=== PATIENT | female | born 1950 | race Caucasian/White ===

== ENCOUNTER 2017-08-15 09:10 | Outpatient (CLI) | payer MEDICARE, OTHER ==
--- NOTE | 2017-08-16 15:48 | DEXA Report ---
DEXA SCAN: 08/15/2017 HISTORY: Postmenopausal. Mother with osteoporosis. TECHNIQUE: Dual energy x-ray absorptiometry (DXA) was performed on a [employer] system. Regions measured are the AP spine, femoral neck, and, if needed, forearm. COMPARISON: None. In accordance with the International Society for Clinical Densitometry (ISCD) guidelines, data from previous exams may be reanalyzed using current recommendations and techniques. This is done to allow a more accurate basis for comparison with the current study. FINDINGS LUMBAR SPINE DATA: REGION BMD (g/cm/cm) T-SCORE Z-SCORE L1 0.902 -1.9 -0.3 L2 0.946 -2.1 -0.5 L3 0.951 -2.1 -0.4 L4 1.011 -1.6 0.1 TOTAL 0.957 -1.9 -0.2 NOTE: All evaluable vertebrae are used for classification. HIP DATA: REGION BMD (g/cm/cm) T-SCORE Z-SCORE Neck 0.769 -1.9 -0.3 TOTAL 0.731 -2.2 -0.8 NOTE: The femoral neck or total proximal femur, whichever is lowest, is used for classification. IMPRESSION THE WHO CLASSIFICATION BASED ON THE INTERNATIONAL REFERENCE STANDARD: OSTEOPENIA. FRACTURE RISK: INCREASED. RECOMMENDATION: Patients with diagnosis of osteoporosis or osteopenia should have regular bone mineral density assessment. For those eligible for Medicare, routine testing is allowed once every 2 years. Testing frequency can be increased for patients who have rapidly progressing disease or for those who are receiving medical therapy to restore bone mass. COMMENT: World Health Organization (WHO) definitions for osteoporosis and osteopenia: NORMAL BMD: T-score at -1.0 or higher, fracture risk is low. OSTEOPENIA BMD: T-score between -1.0 and -2.5, fracture risk is increased. OSTEOPOROSIS BMD: T-score at -2.5 or lower, fracture risk high. National Osteoporosis Foundation recommends: 1. Obtain adequate dietary calcium (at least 1200 mg per day) and vitamin D (400 -800 international units per day). 2. Participate, as appropriate, in regular weightbearing and muscle- strengthening exercise. 3. Avoid tobacco use and reduce alcohol and caffeine intake. 4. For more detailed information see the website at www.NOF.org. MTDD
== END 2017-08-15 09:11 | disposition home or self-care (01) ==
LOC: DI 09:10
PROVIDERS: ATTEND Physician Assistant
DX: M85.89 Other specified disorders of bone density and structure, multiple sites (principal)
CPT/HCPCS: 77080

== ENCOUNTER 2017-08-15 09:14 | Outpatient (CLI) | payer MEDICARE, OTHER ==
--- NOTE | 2017-08-16 11:34 | Mammography Report ---
DIGITAL BILATERAL SCREENING MAMMOGRAM: 08/15/2017 COMPARISON: Mammogram 08/09/2016. INDICATION: Bilateral screening mammogram. TECHNIQUE: Bilateral MLO and CC breast views. FINDINGS: The breast parenchyma is extremely dense which may limit the sensitivity of mammography. No mass, architectural distortion, or concerning cluster of microcalcifications are seen. IMPRESSION: 1. BIRADS CATEGORY 1. NEGATIVE. 2. RECOMMEND ANNUAL SCREENING MAMMOGRAM. STANDARD QUALIFYING STATEMENTS 1. This examination was reviewed with the aid of Computer-Aided Detection (CAD). 2. A negative or benign imaging report should not delay biopsy if clinically suspicious findings are present. Consider surgical consultation if warranted. More than 5% of cancers are not identified by imaging. 3. Dense breasts may obscure an underlying neoplasm. JOB #: [id number] EXT JOB #: [id number] AGUEDA
== END 2017-08-15 09:15 | disposition home or self-care (01) ==
LOC: DI 09:14
PROVIDERS: ATTEND Physician Assistant
DX: Z12.31 Encounter for screening mammogram for malignant neoplasm of breast (principal)
CPT/HCPCS: 77067

== ENCOUNTER 2018-10-17 15:19 | Outpatient (CLI) | payer MEDICARE, OTHER ==
--- NOTE | 2018-10-18 09:46 | Mammography Report ---
Reason: SCREENING MAMMO Procedure Date: 10/17/2018 Accession Number: [id number] / [id number] Procedure: [facility] - Screening Mammo w/Tc CPT Code: FULL RESULT: EXAM: Screening Mammo w/Tc DATE: 10/17/2018 4:01 PM CLINICAL HISTORY: Routine screening. No reported personal or family history of breast cancer. TECHNIQUE: Bilateral CC and MLO views were obtained. COMPARISON: 08/15/2017 through 05/25/2015 FINDINGS: The breasts demonstrate heterogeneously dense fibroglandular parenchyma bilaterally. Bilateral breasts: There are no suspicious masses, calcifications or areas of distortion. IMPRESSION: Negative examination RECOMMENDATION: Routine annual screening unless otherwise clinically indicated. BI-RADS CATEGORY 1: Negative STANDARD QUALIFYING STATEMENTS: 1. This examination was not reviewed with the aid of Computer-Aided Detection (CAD). 2. A negative or benign imaging report should not preclude biopsy if clinically suspicious findings are present. 3. Dense breasts may obscure an underlying neoplasm. 4. This examination was reviewed with the aid of 3D breast imaging (tomosynthesis).
== END 2018-10-17 15:20 | disposition home or self-care (01) ==
LOC: DI 15:19
DX: Z12.31 Encounter for screening mammogram for malignant neoplasm of breast (principal)
CPT/HCPCS: 77063; 77067

== ENCOUNTER 2019-07-24 15:13 | Outpatient (CLI) | payer MEDICARE, OTHER | END 2019-07-24 15:14 | disposition home or self-care (01) | LOC: LAB 15:13 | PROVIDERS: ATTEND Internal Medicine Cardiovascular Disease | DX: Z82.49 Family history of ischemic heart disease and other diseases of the circulatory system (principal) | CPT/HCPCS: 36415; 86141 ==

== ENCOUNTER 2020-12-23 15:42 | Outpatient (CLI) | payer MEDICARE ==
--- NOTE | 2020-12-23 18:37 | Ultrasound Report ---
PROCEDURE: Pelvic w/Transvaginal INDICATIONS: BROWN VAG DISCHARGE TECHNIQUE: Real-time scanning was performed of the pelvic organs, with image documentation. Additional endovagi nal scanning was necessary due to incomplete visualization of the adnexal and endometrial structures by transabdominal scanning. COMPARISON: CT of abdomen and pelvis dated 04/23/2015. FINDINGS: Study is markedly limited. Large thick walled cystic structure is noted in the region of the cervix a nd measures 7.3 x 6.8 x 8.9 cm in size with internal low-level echo which prevents the insertion of t ransvaginal probe. Uterus is not well seen on this study. Right ovary measures 5.1 x 5.8 x 6.2 cm in size with a volume of 96.1 cc. Left ovary measures 4.4 x 3 x 3.9 cm in size with a volume of 26.9 cc. Lobulated cystic structure in right ovary measures 3.7 x 3.6 x 3.0 cm in size is seen. There is a 8.1 x 5.3 x 7.1 cm complex appearing cystic structure is see n in the region of left ovary without definite internal vascularity. Additional complex cystic struct ure is also seen within the pelvis. No definite internal vascularity is seen. IMPRESSION: 1. Markedly limited study. Unable to perform transvaginal exam of the pelvis as above. 2. Multiple thick walled complex cystic structure is seen in the pelvis some are in close proximity t o the bilateral ovaries and in the region of cervix as described above. These may represent large ova juvencio cyst versus paraovarian complex cysts such as endometrioma. Other cystic neoplasm cannot be excl uded. LOG SORTER correlation is recommended. CT of abdomen and pelvis can also be done for further evaluatio n of these areas. Reviewed by: José Del Rio MD on 12/23/2020 5:36 PM AKAMIRAH Approved by: José Del Rio MD on 12/23/2020 5:36 PM AKDT Station ID: [id number]
== END 2020-12-23 15:43 | disposition home or self-care (01) ==
LOC: DI 15:42
PROVIDERS: ATTEND Nurse Practitioner Family
DX: N89.8 Other specified noninflammatory disorders of vagina (principal); R93.89 Abnormal findings on diagnostic imaging of other specified body structures

== ENCOUNTER 2020-12-25 09:37 | Outpatient (CLI) | payer MEDICARE ==
[2020-12-25 10:09] LABS: CREATININE 0.7 mg/dL (0.4-1.0)
[2020-12-25] MEDS ORDERED: IOPAMIDOL-300 100 ML VIAL IVP ONE (17:21)
[2020-12-25] MEDS ORDERED: IOPAMIDOL-300 50 ML VIAL PO ONE (17:22)
== END 2020-12-25 09:38 | disposition home or self-care (01) ==
LOC: LAB 09:37
PROVIDERS: ATTEND Nurse Practitioner Family
DX: R19.00 Intra-abdominal and pelvic swelling, mass and lump, unspecified site (principal)
CPT/HCPCS: 36415; 82565

== ENCOUNTER 2020-12-25 09:43 | Outpatient (CLI) | payer MEDICARE ==
[2020-12-25] MEDS ORDERED: IOPAMIDOL-300 100 ML VIAL ONE (09:44)
[2020-12-25] MEDS ORDERED: IOPAMIDOL-300 50 ML VIAL ONE (09:45)
--- NOTE | 2020-12-25 12:16 | CT Report ---
PROCEDURE: Abdomen/Pelvis W INDICATIONS: INTRA-ABD AND PELVIC SWELLING, MASS, LUMP CONTRAST: IV CONTRAST: Isovue 300 ml: 100 PO CONTRAST: Isovue 300 ml50 TECHNIQUE: After the administration of nonionic contrast, 5 mm thick sections acquired from the diaphragms to th e symphysis. 5 mm thick coronal and sagittal reformats were acquired. For radiation dose reduction, the following was used: automated exposure control, adjustment of mA and/or kV according to patient size. COMPARISON: None. FINDINGS: Image quality: Excellent. ABDOMEN: Lung bases: Lung bases are clear. Heart size is normal. Solid organs: Liver and spleen are normal in size and enhancement. Gallbladder is unremarkable Jose David iary system is non dilated. Pancreas enhances normally. No adrenal nodules. Kidneys demonstrate no rmal size and enhancement, without hydronephrosis. Simple appearing right superior pole cystic lesio n decreased in size from comparison exam. Nonobstructing nephrolith within the inferior pole of the l eft kidney. Peritoneum and bowel: Bowel loops demonstrate normal wall thickness and caliber. Within the left matt e of the abdomen extending adjacent to the descending and sigmoid colon is a heterogeneous enhancing mesenteric mass measuring 8.0 x 4.8 x 9.3 cm in greatest dimensions. Nodes and vessels: There is retroperitoneal adenopathy with conglomeration of periaortic lymph nodes noted just distal to the left renal vein measuring 3.1 x 2.6 x 5.0 cm. Aorta and inferior vena cava a re normal in size. Miscellaneous: No ventral hernias. PELVIS: Genitourinary: There is dilation of the endocervical canal measuring 6.7 x 8.4 cm on axial imaging. T here are adjacent thick-walled peripherally enhancing hypodense centered lesion along the posterior a spect of the cervix measuring 2.9 x 1.9 cm on axial imaging in addition there is focal enhancement al ace the left side of the posterior cervix measuring 4.0 x 2.4 cm on axial imaging. There is fluid-arnold led dilated uterus with a soft tissue mass along the right superior aspect measuring 2.7 x 1.9 cm on axial imaging. Along the right adnexa is a multilobulated peripherally enhancing cystic appearing mas s measuring 8.1 x 5.7 x 5.2 cm. Additional heterogeneous multilobulated cystic mass is noted within t he posterior aspect of the pelvis measuring 8.3 x 5.4 x 8.9 cm. Miscellaneous: No inguinal hernias or adenopathy. Bones: No suspicious bony lesions. No vertebral body compression fractures. IMPRESSION: Findings most consistent with metastatic malignancy throughout the pelvis and abdomen. This includes multiple thick-walled enhancing cystic lesions throughout the pelvis and within the mesentery along w ith periaortic adenopathy. Given dilation of the cervix and endometrial canal along with endometrial mass, this is favored to represent metastatic endometrial versus cervical carcinoma. Recommend gyneco logical surgery and oncologic evaluation with tissue sampling. Nonobstructing left-sided nephrolith. Reviewed by: Tai Zuñiga DO on 12/25/2020 11:15 AM ALVIN Approved by: Tai Zuñiga DO on 12/25/2020 11:15 AM ALVIN Station ID: [id number]
== END 2020-12-25 09:44 | disposition home or self-care (01) ==
LOC: DI 09:43
PROVIDERS: ATTEND Nurse Practitioner Family
DX: R93.5 Abnormal findings on diagnostic imaging of other abdominal regions, including retroperitoneum (principal); N20.0 Calculus of kidney; R19.00 Intra-abdominal and pelvic swelling, mass and lump, unspecified site
CPT/HCPCS: 36415; 74177; 82565; Q9967

== ENCOUNTER 2021-01-18 08:17 | Outpatient (CLI) | payer MEDICARE ==
[2021-01-18] MEDS ORDERED: IOPAMIDOL-300 100 ML VIAL ONE (08:23)
[2021-01-18] MEDS ORDERED: IOPAMIDOL-300 100 ML VIAL IVP ONE (08:49)
--- NOTE | 2021-01-18 11:51 | CT Report ---
PROCEDURE: CHEST W INDICATIONS: MALIGNANT NEOPLASM OF OVARY CONTRAST: IV CONTRAST: Isovue 300 ml: 100 PO CONTRAST: *NO PO CONTRAST TECHNIQUE: After the administration of intravenous contrast, 5 mm thick sections acquired from the pulmonary api jojo to the posterior costophrenic angles. 7 mm thick coronal MIP reformats were acquired. For radia tion dose reduction, the following was used: automated exposure control, adjustment of mA and/or kV according to patient size. COMPARISON: Prior abdomen/pelvis CT 12/25/2020 reviewed.. FINDINGS: Image quality: Excellent. Lungs and pleura: No acute air space opacities. No pleural effusions or pneumothorax. Central and peripheral airways are patent and normal in caliber. Mediastinum: Heart size is normal. No pericardial effusion. No mediastinal or hilar adenopathy by size criteria. Thoracic aorta and central pulmonary arteries are normal in size. Esophagus is francisco l in caliber. No hiatal hernia. Bones and chest wall: No suspicious bony lesions. No vertebral body compression fractures. No axil michaelle or supraclavicular adenopathy by size criteria. Thyroid gland appears normal where well seen.. Abdomen: Visualized upper abdominal solid organs appear normal. Upper abdominal bowel loops are nor mal in caliber. Note is made, however, of left para-aortic and to a mild degree aortocaval adenopath y, as was seen during CT scanning of the abdomen/pelvis 12/25/20. Only a small portion of the abdomen is included on this study. IMPRESSION: Within the lung parenchyma no metastatic disease is found. Within the abdomen there is left periaorti c and to a mild degree aortocaval enlarged lymph nodes, previously present on dedicated abdomen/pelvi s CT scanning from 12/25/2020. Reviewed by: Jamil Tony MD on 01/18/2021 11:49 AM PDT Approved by: Jamil Tony MD on 01/18/2021 11:49 AM PDT Station ID: [id number]
== END 2021-01-18 08:18 | disposition home or self-care (01) ==
LOC: DI 08:17
PROVIDERS: ATTEND Obstetrics & Gynecology
DX: R59.0 Localized enlarged lymph nodes (principal)
CPT/HCPCS: 71260; Q9967

== ENCOUNTER 2021-03-21 07:52 | Outpatient (CLI) | payer MEDICARE ==
[2021-03-21] MEDS ORDERED: IOVERSOL 320 100 ML VIAL IVP ONE ×2 (07:58→10:24)
[2021-03-21] MEDS ORDERED: IOVERSOL 320 50 ML VIAL ONE (07:58)
[2021-03-21] MEDS ORDERED: IOPAMIDOL-300 50 ML VIAL PO ONE (10:25)
--- NOTE | 2021-03-21 17:06 | CT Report ---
PROCEDURE: CHEST W INDICATIONS: METASTATIC UTERINE CA CONTRAST: IV CONTRAST: Optiray 320 ml: 100 PO CONTRAST: Isovue 300 ml50 TECHNIQUE: After the administration of intravenous contrast, 5 mm thick sections acquired from the pulmonary api jojo to the posterior costophrenic angles. 7 mm thick coronal MIP reformats were acquired. For radia tion dose reduction, the following was used: automated exposure control, adjustment of mA and/or kV according to patient size. COMPARISON: 01/18/2021. FINDINGS: Image quality: Excellent. Lungs and pleura: No acute air space opacities. No pleural effusions or pneumothorax. Central and peripheral airways are patent and normal in caliber. Mediastinum: Heart size is mildly enlarged. No pericardial effusion. No mediastinal or hilar adeno kenny by size criteria. Thoracic aorta and central pulmonary arteries are normal in size. Mild to mo derate atherosclerotic calcifications are noted in coronary vessels and thoracic aorta. Esophagus is normal in caliber. No hiatal hernia. Bones and chest wall: No suspicious bony lesions. No vertebral body compression fractures. No axil michaelle or supraclavicular adenopathy by size criteria. The thyroid is normal in size. Hypodense area i nvolving lower pole of left thyroid lobe is seen which may represent tiny thyroid nodule. Right chest wall Port-A-Cath tip is in SVC. Abdomen: Please refer to CT of the abdomen and pelvis study from the same day. IMPRESSION: 1. No evidence of metastatic disease is seen in the chest. No significant changes from 01/18/2021 stud y. 2. Incidentally noted of possible tiny nodule involving lower pole of left thyroid lobe. 3. Mild cardiomegaly and mild to moderate atherosclerotic disease. Reviewed by: José Del Rio MD on 03/21/2021 5:05 PM PDT Approved by: José Del Rio MD on 03/21/2021 5:05 PM PDT Station ID: [id number]
--- NOTE | 2021-03-21 18:27 | CT Report ---
PROCEDURE: Abdomen/Pelvis W INDICATIONS: METASTATIC UTERINE CA CONTRAST: IV CONTRAST: Optiray 320 ml: 100 PO CONTRAST: Isovue 300 ml50 TECHNIQUE: After the administration of 100 mL contrast, 5 mm thick sections acquired from the diaphragms to the symphysis. 5 mm thick coronal and sagittal reformats were acquired. For radiation dose reduction, t billy following was used: automated exposure control, adjustment of mA and/or kV according to patient s ize. COMPARISON: 12/25/2020. FINDINGS: Image quality: Excellent. ABDOMEN: Lung bases: See separately dictated CT of the chest. Solid organs: Liver and spleen are normal in si ze and enhancement. Gallbladder is normal. Biliary system is non dilated. Pancreas enhances normal ly. No adrenal nodules. Kidneys demonstrate normal size and enhancement, without hydronephrosis. Th ere are is a 2 cm cyst of the right kidney. A nonobstructing left kidney nephrolith in the midpole is unchanged. Peritoneum and bowel: Bowel loops demonstrate normal wall thickness and caliber. There is increased stool in the colon consistent with constipation. No free fluid or air. Nodes and vessels: No retroperitoneal or mesenteric adenopathy by size criteria. Aorta and inferior vena cava are normal in size. Miscellaneous: No ventral hernias. PELVIS: Genitourinary: Status post hysterectomy since the prior CT. Lobulated masses in the right adnexa, lef t pelvis, and left lower quadrant seen on the prior CT are no longer seen likely also resected. No re sidual pelvic or mesenteric masses are identified. Retroperitoneal lymph nodes present on the prior C T have resolved and are within normal limits within size criteria. Miscellaneous: No inguinal hernias or adenopathy. Bones: No suspicious bony lesions. No vertebral body compression fractures. There is degenerative disc disease at L4-5. IMPRESSION: 1. Status post hysterectomy and resection of multiple mesenteric masses seen on the prior CT on 2020. No residual mesenteric or pelvic masses are identified. 2. Retroperitoneal para-aortic adenopathy seen on the prior CT have resolved. 3. No evidence of residual or recurrent metastasis or adenopathy. 4. Constipation. Reviewed by: Gulshan Miguel on 03/21/2021 6:25 PM PDT Approved by: Gulshan Miguel on 03/21/2021 6:25 PM PDT Station ID: [id number]
== END 2021-03-21 07:53 | disposition home or self-care (01) ==
LOC: DI 07:52
PROVIDERS: ATTEND Internal Medicine Hematology & Oncology
DX: C57.8 Malignant neoplasm of overlapping sites of female genital organs (principal); I51.7 Cardiomegaly; I25.10 Atherosclerotic heart disease of native coronary artery without angina pectoris; K59.00 Constipation, unspecified; Z90.710 Acquired absence of both cervix and uterus
CPT/HCPCS: 71260; 74177; Q9967

== ENCOUNTER 2021-07-08 07:39 | Outpatient (CLI) | payer MEDICARE ==
[2021-07-08] MEDS ORDERED: IOVERSOL 320 50 ML VIAL ONE (07:51)
[2021-07-08] MEDS ORDERED: IOVERSOL 320 100 ML VIAL IVP ONE (07:51)
--- NOTE | 2021-07-08 15:53 | CT Report ---
PROCEDURE: Abdomen/Pelvis W INDICATIONS: OVARIAN CANCER CONTRAST: IV CONTRAST: Optiray 320 ml: 100 PO CONTRAST: Optiray 320 ml50 TECHNIQUE: After the administration of contrast, 5 mm thick sections acquired from the diaphragms to the sym physis. 5 mm thick coronal and sagittal reformats were acquired. For radiation dose reduction, the following was used: automated exposure control, adjustment of mA and/or kV according to patient size . COMPARISON: None. FINDINGS: Image quality: Excellent. ABDOMEN: Lung bases: 5 mm nodule in the left lower lobe series 11 image 102. 3 mm nodule in the right middle lobe series 11 image 95. Lung bases are clear. Heart size is normal. Solid organs: Liver and spleen are normal in size and enhancement. Gallbladder is normal. Biliary system is non dilated. Pancreas enhances normally. No adrenal nodules. Kidneys demonstrate normal size and enhancement, without hydronephrosis. The right kidney has a 2 cm cyst, unchanged compared t o 03/21/2021. Peritoneum and bowel: There is increased stool throughout the large bowel consistent with constipati on. Bowel loops demonstrate normal wall thickness and caliber. No free fluid or air. Nodes and vessels: No retroperitoneal or mesenteric adenopathy by size criteria. Aorta and inferior vena cava are normal in size. The aorta is tortuous. Miscellaneous: No ventral hernias. PELVIS: Genitourinary: Bladder wall thickness is normal. Miscellaneous: No inguinal hernias or adenopathy. Bones: No suspicious bony lesions. No vertebral body compression fractures. IMPRESSION: 1. No acute abnormality of the abdomen or pelvis. 2. Status post hysterectomy and nephrectomy. No evidence of metastatic disease to the abdomen or pelv is. 3. Constipation. 4. No retroperitoneal or para-aortic adenopathy. Reviewed by: Gulshan Miguel on 07/08/2021 3:52 PM PDT Approved by: Gulshan Miguel on 07/08/2021 3:52 PM PDT Station ID: [id number]
[2021-07-08] MEDS: IOVERSOL 320 50 ML VIAL PO ONE (16:17)
[2021-07-08] MEDS: IOVERSOL 320 100 ML VIAL IVP ONE (16:17)
--- NOTE | 2021-07-08 18:02 | CT Report ---
PROCEDURE: CHEST W INDICATIONS: OVARIAN CANCER CONTRAST: IV CONTRAST: Optiray 320 ml: 100 PO CONTRAST: Optiray 320 ml50 TECHNIQUE: After the administration of intravenous contrast, 1 mm axial images were acquired from the pulmonary apices through the posterior costophrenic angles. Axial 5 mm soft tissue kernel reconstructions were performed as well as 8 mm axial MIP and coronal and sagittal 5 mm reformations. For radiation dose reduction, the following was used: automated exposure control, adjustment of mA and/or kV according to patient size. COMPARISON: Prior chest CT, 03/21/2021. Correlation is made with the accompanying abdomen and pelvis CT, 07/08/2021. FINDINGS: Image quality: Excellent. Lungs and pleura: A few pulmonary nodules can be seen: Right middle lobe laterally, series 4 image 190, 3 mm, stable Right lower lobe anteriorly, series 4 image 166, 2 mm, stable Left lower lobe laterally, subpleural, series 4 image 206, 4 to 5 mm, stable No acute air space opacities. No pleural effusions or pneumothorax. Central and peripheral airways are patent and normal in caliber. Mediastinum: Heart size is normal. No pericardial effusion. No mediastinal or hilar adenopathy by size criteria. Thoracic aorta and central pulmonary arteries are normal in size. Esophagus is francisco l in caliber. There is a small hiatal hernia. Bones and chest wall: No suspicious bony lesions. No vertebral body compression fractures. Age-appr opriate degenerative changes are seen. There is accentuated thoracic kyphosis. No axillary or ellis praclavicular adenopathy by size criteria. The thyroid is normal in size and there are no incidental findings. There is a stable right-sided chest port, with the tip seen within the inferior aspect of the superior vena cava. Abdomen: There is an apparent septated cyst seen along the lateral aspect of the right kidney, which is eccentric decreased in size compared to 2015. Bilateral mild hydronephrosis is seen. The visualize d portions of the upper abdominal structures are otherwise within normal limits. IMPRESSION: Stable moderate nodules are seen on both sides. Although there is relatively low suspicion for metast atic disease, attention should be paid to these nodules on a future follow-up studies. Incidental note is made of: Stable right-sided chest port Small hiatal hernia Reviewed by: Romaine Guadalupe MD on 07/08/2021 5:00 PM AKDT Approved by: Romaine Guadalupe MD on 07/08/2021 5:00 PM ALVIN Station ID: [id number]
== END 2021-07-08 07:40 | disposition home or self-care (01) ==
LOC: DI 07:39
PROVIDERS: ATTEND Internal Medicine Hematology & Oncology
DX: C56.9 Malignant neoplasm of unspecified ovary (principal); R91.8 Other nonspecific abnormal finding of lung field; K44.9 Diaphragmatic hernia without obstruction or gangrene; K59.00 Constipation, unspecified
CPT/HCPCS: 71260; 74177; Q9967

== ENCOUNTER 2021-09-20 09:35 | Outpatient (CLI) | payer MEDICARE ==
--- NOTE | 2021-09-21 16:07 | Mammography Report ---
BILATERAL DIGITAL SCREENING MAMMOGRAM 3D/2D WITH EXAGGERATED CC: 09/20/2021 CLINICAL: Routine screening. Routine screening. Comparison is made to exams dated: 10/17/2018 mammogram and 08/15/2017 mammogram - [facility]. The tissue of both breasts is heterogeneously dense. This may lower the sensitivity of brett mography. There are benign calcifications in the left breast. No significant masses, calcifications, or other findings are seen in either breast. There has been no significant interval change. IMPRESSION: BENIGN There is no mammographic evidence of malignancy. A 1 year screening mammogram is recommended. This exam was interpreted at Station ID: [id number]. NOTE: For mammograms, a report in lay terms will be sent to the patient. Approximately 15% of breast malignancies will not be visualized mammographically. In the management of a palpable breast mass, a negative mammogram must not discourage biopsy of a clinically suspicious lesion. Electronically Signed By: Odessa farah/peter:09/20/2021 15:40:17 ACR BI-RADS Category 2: Benign Finding(s) 3342F PARENCHYMAL PATTERN: (D) - The breast(s) demonstrate(s) heterogeneously dense fibroglandular parchantelly ma. BI-RADS CATEGORY: (2) - 2 RECOMMENDATION: (ANNUAL) - Recommend routine annual screening mammography. [id number] 1 year screening LATERALITY: (B)
== END 2021-09-20 09:36 | disposition home or self-care (01) ==
LOC: DI.S 09:35
PROVIDERS: ATTEND Nurse Practitioner Family
DX: Z12.31 Encounter for screening mammogram for malignant neoplasm of breast (principal)

== ENCOUNTER 2021-10-14 14:25 | Outpatient (CLI) | payer MEDICARE, OTHER ==
--- NOTE | 2021-10-14 16:41 | DEXA Report ---
PROCEDURE: Dexa Spine and/or Hip INDICATIONS: postmenopausal TECHNIQUE: Dual energy x-ray absorptiometry (DXA) was performed on a [employer] System. Regions measur ed are the AP Spine, femoral neck, and if needed forearm. COMPARISON: 08/15/2017 FINDINGS: Lumbar Spine: Bone Mineral Density 1.023 g/cm/cm,T score -1.3, osteopenia Left Hip: Bone Mineral Density 0.708 g/cm/cm,T score -2.4, osteopenia Left Femoral Neck: Bone Mineral Density 0.765 g/cm/cm, T score -2.0, osteopenia (T score greater or equal to -1.0: NORMAL) (T score from -1.1 to -2.4: OSTEOPENIA) (T score less than or equal to -2.5 to: OSTEOPOROSIS) Impression: OSTEOPENIA. Patient is at increased risk for fracture Patients with diagnosis of osteoporosis or osteopenia should have regular bone mineral density assess ment. For those eligible for Medicare, routine testing is allowed once every 2 years. Testing frequ ency can be increased for patients who have rapidly progressing disease or for those who are receivin g medical therapy to restore bone mass. Reviewed by: Todd Sun MD on 10/14/2021 4:39 PM PST Approved by: Todd Sun MD on 10/14/2021 4:39 PM PST Station ID: [id number]
== END 2021-10-14 14:26 | disposition home or self-care (01) ==
LOC: DI 14:25
PROVIDERS: ATTEND Physician Assistant
DX: Z78.0 Asymptomatic menopausal state (principal); M85.89 Other specified disorders of bone density and structure, multiple sites

== ENCOUNTER 2024-01-21 09:58 | Outpatient (CLI) | payer MEDICARE, OTHER ==
[2024-01-21 10:16] LABS: EOSINOPHILS # (AUTO) 0.1 10^3/uL (0.0-0.7); HCT - HEMATOCRIT 37.1 % (37.0-47.0); LYMPHOCYTES # (AUTO) 1.1 10^3/uL (1.5-3.5); LYMPHOCYTES % (AUTO) 26.6 %; MEAN CORPUSCULAR HEMOGLOBIN 29.9 pg (27.0-31.0); MEAN CORPUSCULAR HGB CONC 32.3 g/dL (32.0-36.0); MEAN CORPUSCULAR VOLUME 92.5 fL (81.0-99.0); MEAN PLATELET VOLUME 9.9 fL (7.9-10.8); MONOCYTES # (AUTO) 0.4 10^3/uL (0.0-1.0); MONOCYTES % (AUTO) 10.7 %; NEUTROPHILS # (AUTO) 2.4 10^3/uL (1.5-6.6); NEUTROPHILS % (AUTO) 58.5 %; PLT - PLATELET COUNT 290 10^3/uL (130-450); RED BLOOD COUNT 4.01 10^6/uL (4.20-5.40); RED CELL DISTRIBUTION WIDTH 12.9 % (12.0-15.0)
[2024-01-21 10:37] LABS: ALBUMIN 4.2 g/dL (3.2-5.5); ALBUMIN/GLOBULIN RATIO 1.9 (1.0-2.2); ALKALINE PHOSPHATASE 61 IU/L (42-121); ALT ALANINE AMINOTRANSFERASE 6 IU/L (10-60); AST ASPARTATE AMINOTRANSFERASE 13 IU/L (10-42); BILIRUBIN,TOTAL 0.6 mg/dL (0.2-1.0); BUN - BLOOD UREA NITROGEN 18 mg/dL (6-20); CALCIUM 9.4 mg/dL (8.5-10.3); CARBON DIOXIDE - CO2 29 mmol/L (21-32); CHLORIDE 104 mmol/L (101-111); CHOLESTEROL 201 mg/dL; CREATININE 0.7 mg/dL (0.6-1.3); GFR - MDRD 81 (>89); GLUCOSE 94 mg/dL (74-104); HDL CHOLESTEROL 67 mg/dL; LDL CHOLESTEROL,CALCULATED 105 mg/dL; LDL/HDL RATIO 1.6 (<4.4); POTASSIUM 4.2 mmol/L (3.5-4.5); SODIUM 137 mmol/L (135-145); TOTAL PROTEIN 6.4 g/dL (6.4-8.9); TRIGLYCERIDES 146 mg/dL (48-352); VLDL CHOLESTEROL 29 mg/dL
[2024-01-21 10:48] LABS: THYROID STIMULATING HORMONE 1.97 uIU/mL (0.34-5.60)
== END 2024-01-21 09:59 | disposition home or self-care (01) ==
LOC: LAB 09:58
PROVIDERS: ATTEND Internal Medicine
DX: E78.5 Hyperlipidemia, unspecified (principal); Z13.228 Encounter for screening for other metabolic disorders; Z13.29 Encounter for screening for other suspected endocrine disorder; Z13.0 Encounter for screening for diseases of the blood and blood-forming organs and certain disorders involving the immune mechanism
CPT/HCPCS: 36415; 80053; 80061; 83721; 84443; 85025